=== PATIENT | male | born 2000 | race Hispanic/Latino ===

== ENCOUNTER 2021-07-20 13:01 | Emergency (ER) | payer SELFPAY ==
[2021-07-20] MEDS ORDERED: Ibuprofen 200 MG TAB ONE (13:20)
== END 2021-07-20 14:25 | disposition home or self-care (01) ==
LOC: CSHERS 13:01
DX: S82.444A Nondisplaced spiral fracture of shaft of right fibula, initial encounter for closed fracture (principal); M25.371 Other instability, right ankle; V29.9XXA Motorcycle rider (driver) (passenger) injured in unspecified traffic accident, initial encounter
CPT/HCPCS: 29515

== ENCOUNTER 2021-07-21 07:40 | Emergency (ER) | payer MEDICAID, SELFPAY ==
[2021-07-21] MEDS ORDERED: Acetaminophen 500 MG TAB ONE (08:30)
== END 2021-07-21 08:34 | disposition home or self-care (01) ==
LOC: CSHERS 07:40
DX: S82.401A Unspecified fracture of shaft of right fibula, initial encounter for closed fracture (principal); X58.XXXA Exposure to other specified factors, initial encounter
CPT/HCPCS: 29515; 99283